=== PATIENT | male | born 1970 | race Caucasian/White ===

== ENCOUNTER 2024-02-23 06:32 | Emergency (ER) | payer OTHER ==
[~2024-02-23] VITALS: Ht 185.4 cm; Wt 106.0 kg
[2024-02-23 09:27] LABS: BASO # 0.1 10^3/uL (0.0-0.2); BASO % 0.8 % (0.0-1.0); EOS # 0.1 10^3/uL (0.0-0.5); EOS % 1.4 % (0.0-3.0); HEMATOCRIT 49.2 % (42.0-52.0); HEMOGLOBIN 16.2 g/dl (13.5-17.5); LYMPH # 1.7 10^3/uL (1.5-5.0); LYMPH % 23.7 % (24.0-44.0); MEAN CORPUSCULAR HEMOGLOBIN 29.8 pg (27.0-33.0); MEAN CORPUSCULAR HGB CONC 32.9 g/dl (32.0-36.5); MEAN CORPUSCULAR VOLUME 90.4 fl (80.0-96.0); MONO # 0.5 10^3/uL (0.0-0.8); MONO % 6.8 % (2.0-8.0); NEUTROPHILS # 4.7 10^3/uL (1.5-8.5); NEUTROPHILS % 66.9 % (36.0-66.0); PLATELET COUNT, AUTOMATED 317 10^3/uL (150-450); RED BLOOD COUNT 5.44 10^6/uL (4.30-6.10); WHITE BLOOD COUNT 7.1 10^3/uL (4.0-10.0)
[2024-02-23 09:46] LABS: CK-MB VALUE MASS < 1.0 NG/ML (<3.6); MAGNESIUM LEVEL 2.2 MG/DL (1.8-2.4)
[2024-02-23 09:50] LABS: THYROID STIMULATING HORMONE 1.426 uIU/ML (0.55-4.78)
[2024-02-23 09:53] LABS: CPK CREATINE PHOSPHOKINASE 68 U/L (46-171); MB/CK RELATIVE INDEX 1.47 (< OR =4)
[2024-02-23 10:08] LABS: ALBUMIN 4.5 G/DL (3.2-5.2); ALKALINE PHOSPHATASE 72 U/L (40-129); ALT/SGPT 55 U/L (7.0-40); AST/SGOT 30 U/L (<34); BILIRUBIN,TOTAL 0.7 MG/DL (0.3-1.2); BLOOD UREA NITROGEN 12 MG/DL (9-23); CALCIUM LEVEL 10.7 MG/DL (8.5-10.1); CARBON DIOXIDE LEVEL 26 MMOL/L (20-31); CHLORIDE LEVEL 105 MMOL/L (98-107); CREATININE FOR GFR 0.85 MG/DL (0.70-1.30); GLOMERULAR FILTRATION RATE > 60.0 (>56); GLUCOSE, FASTING 109 MG/DL (60-100); SODIUM LEVEL 139 MMOL/L (136-145); TOTAL PROTEIN 7.8 G/DL (5.7-8.2)
[2024-02-23 11:27] LABS: CK-MB VALUE MASS < 1.0 NG/ML (<3.6)
[2024-02-23 11:33] LABS: CPK CREATINE PHOSPHOKINASE 66 U/L (46-171); MB/CK RELATIVE INDEX 1.51 (< OR =4)
[2024-02-23 12:11] LABS: POTASSIUM SERUM 5.6 MMOL/L (3.5-5.1)
[2024-02-23 13:05] LABS: KETONE, URINE AUTO RFX NEGATIVE (NEGATIVE); LEUKOCYTE ESTERASE UR AUTO RFX NEGATIVE (NEGATIVE); MUCUS, URINE RFX SMALL (NEGATIVE)
[2024-02-23] MEDS: NS (Normal Saline) 0.9% 1,000 ML IV ONE (13:07)
[2024-02-23] MEDS: KETOROLAC 30 MG/ML 1ML VIAL IV ONE (13:07)
[2024-02-23] MEDS: ALBUTEROL 90 MCG/ACT 8GM HFA INHALER INH ONE (13:56)
[2024-02-23] MEDS ORDERED: HOME MED LIST COMPLETE! XX SCH (16:10)
[2024-02-23] MEDS ORDERED: misc (16:45)
[2024-02-23 17:00] VITALS: BP 135/86; TEMP 97.3; O2SAT 96
== END 2024-02-23 17:05 | disposition home or self-care (01) ==
LOC: M ED 06:32
DX: R55 Syncope and collapse (principal); E87.5 Hyperkalemia; M25.562 Pain in left knee; R94.31 Abnormal electrocardiogram [ECG] [EKG]; F10.10 Alcohol abuse, uncomplicated
CPT/HCPCS: 70450; 71045; 72125; 73564; 80053; 81001; 82550; 82553; 83735; 84132; 84443; 84484; 85025; 87400; 87426; 93005; 93041; 94640; 94760; 96361; 96374; 99285; J1885